=== PATIENT | male | born 1945 | race Caucasian/White ===

== ENCOUNTER 2019-03-29 23:28 | Inpatient (IN) | payer MEDICARE ==
[~2019-03-29] VITALS: Ht 170.1 cm; Wt 907.2 kg
--- NOTE | ~2019-03-29 | PR ---
[place], [place] PROGRESS NOTE NAME: LUZ TRIPP UNIT #: [id number] ROOM: 311 DOCTOR: LORRI WALTER MD BIRTHDATE: [birth year] DOS: 04/01/2019 CHIEF COMPLAINT: "So, when do I go?" SUMMARY OF THE VISIT: The patient was interviewed as he was finishing his breakfast. As I approached, he asked me when he would be leaving and I told him, Thursday morning. He very gruffly acknowledged me and then went back to eating. He continues to be rather short-fused and irritable. Outwardly, he is tolerating the medication regimen well and I see no sedation or somnolence. MENTAL STATUS: He is alert and oriented with some time gaps. Mood is irritable and short-fused. He is terse and very angry, but not to the point of being combative or resistive. Memory has some minor gaps but for the most part, he is intact. PLAN: His valproic acid level is low therapeutic at 62.1. I will go ahead and increase the dose to 500 mg t.i.d. attempting to bring the blood level to the range of about 80. We will check a valproic acid level on 04/03/2019 in the a.m. Monitor and support, returning then to the least restrictive environment when psychiatrically stable. LORRI WALTER MD CM:PNTRANS [id number] LORRI WALTER MD 04/01/19 1525 interface
--- NOTE | ~2019-03-29 | PR ---
[place], [place] PROGRESS NOTE NAME: LUZ TRIPP UNIT #: [id number] ROOM: 311 DOCTOR: YOUSIF ESTEVES CNP BIRTHDATE: [birth year] DOS: 04/02/2019 CHIEF COMPLAINT: "I am still tired." SUMMARY OF THE VISIT: The patient was interviewed as he sat in the dining room, waiting his breakfast. The patient reports that he slept well last night and that his appetite has been good. He denies feeling depressed or anxious to me. He denies feeling agitated or irritable. Staff reports that the patient did sleep last night. He has not exhibited any recent behaviors, compliant with medication. The patient has been pleasant this morning. MENTAL STATUS EXAMINATION: The patient is alert and oriented. He was pleasant and cooperative with me. No overt margarette or hypomania noted. No delusion or paranoia noted. No psychotic symptoms noted. No auditory or visual hallucinations noted. The patient's mood was calm. His affect is congruent with mood. PLAN: The patient had an increase in Depakote on yesterday to 500 mg 3 times a day. The patient does appear to be tolerating it without any side effects. It appears to be effective at this point. The patient is due for a VPA level to be drawn tomorrow morning. We will continue to encourage the patient to engage in individual and tejeda milieu activity. We will continue fall and safety precautions. Plan is to return the patient to the least restrictive environment once he is considered psychiatrically stable. Yousif Esteves CNP CM:PNTRANS [phone] YOUSIF ESTEVES CNP 04/02/19 1118 interface
--- NOTE | ~2019-03-29 | DS ---
[place], [place] DISCHARGE SUMMARY NAME: LUZ TRIPP UNIT #: [id number] ROOM: 311 DOCTOR: YOUSIF ESTEVES CNP BIRTHDATE: [birth year] DOS: 04/04/2019 CHIEF COMPLAINT: "Am I going home today." HISTORY OF PRESENT ILLNESS: This is a 73-year-old white male who resides at [facility] in [place], [place]. The patient had stated openly to staff that he wanted his to bring a gun into the facility so that he could shoot himself. He stated that he wanted her to bring a gun so that he can go scroll hunting. The patient has been increasingly more despondent there and had not been eating or sleeping well. He has not been attending to his ADLs, has been resistive to care. He was now admitted to the Behavioral Health Unit to rule out any organic factors, to stabilize on medications or any other issues and then return to the least restrictive environment once considered psychiatrically stable. SUMMARY OF THE HOSPITAL COURSE: The patient was admitted to the Behavioral Health Unit and his Effexor XR was discontinued and switched to Remeron 15 mg at bedtime, also his trazodone and Seroquel were discontinued in an effort to simplify his overall drug regimen. The patient was started on Depakote, which was titrated to 500 mg 3 times a day over the course of his stay in order to help with mood lability. He has been maintained on Remeron 15 mg. The patient's last VPA level 04/03/2019 was 70.9. The patient reports that he has been sleeping okay. His appetite is good. He feels that his mood is good. He denies feeling irritable or anxious. The patient has improved sufficiently during the course of the stay, he is not reporting any suicidal or homicidal ideations. MENTAL STATUS AT DISCHARGE: The patient is alert and oriented to person, place and time with some gaps. He was pleasant and cooperative with me. No margarette or hypomania noted. No delusions or paranoia noted. No psychotic symptoms noted. No auditory or visual hallucinations noted. The patient's mood was calm. His affect is congruent with mood. No agitation, irritability or anxiety noted. No aggression. FINAL DIAGNOSIS: Major depression, recurrent, severe. PLAN: The patient will be returning home to his home as [facility] will not take him back since he would not participate in therapy. At the time of discharge, there are no acute medical issues and the patient is considered psychiatrically stable. The patient will follow up with psychiatric services in the community. [place], [place] DISCHARGE SUMMARY NAME: LUZ TRIPP UNIT #: [id number] ROOM: 311 DOCTOR: YOUSIF ESTEVES CNP BIRTHDATE: [birth year] Yousif Esteves CNP CM:DISCHARG 8 YOUSIF ESTEVES CNP 04/04/1951 interface
--- NOTE | ~2019-03-29 | PR ---
[place], [place] PROGRESS NOTE NAME: LUZ TRIPP UNIT #: [id number] ROOM: 311 DOCTOR: YOUSIF ESTEVES CNP BIRTHDATE: [birth year] DOS: 04/03/2019 CHIEF COMPLAINT: "I'm feeling happier." SUMMARY OF THE VISIT: The patient was interviewed as he sat in the dining room. The patient did engage in conversation with me. He reports that his mood is improved. He denies feeling anxious, agitated, or irritable. The patient reports that he slept okay last night. His appetite is good. Staff reports that the patient's VPA level was 70.9. No behaviors noted at this time. Compliant with taking medications. MENTAL STATUS EXAMINATION: The patient is alert and oriented. He was pleasant and cooperative with me. No margarette or hypomania noted. No delusions or paranoia noted. No psychotic symptoms noted. No auditory or visual hallucinations noted. The patient's mood was calm. Affect is congruent with mood. No agitation, irritability, or anxiety noted at this time. PLAN: We will continue the patient's medications as prescribed as he appears to be tolerating them without any type of side effects. Medications appear to be effective. Continue to encourage the patient to engage in individual and tejeda milieu activity. Continue fall and safety precautions. Plan is to return the patient to the least restrictive environment once he is considered psychiatrically stable. Yousif Esteves CNP CM:PNTRANS [phone] [id number] YOUSIF ESTEVES CNP 04/03/195 interface
--- NOTE | ~2019-03-29 | WRIGHTHP ---
[place], [place] PATIENT HISTORY AND PHYSICAL EXAM NAME: LUZ TRIPP UNIT #: [id number] ROOM: 311 DOCTOR: LORRI WALTER MD BIRTHDATE: [birth year] DOS: 03/30/2019 INITIAL PSYCHIATRIC EVALUATION CHIEF COMPLAINT: "I don't know why I am here." HISTORY OF PRESENT ILLNESS: This is a 73-year-old white male who resides at [facility] in [place], [place]. The patient stated openly to staff that he wanted his to bring in a gun so that he can shoot himself. Later, he stated that he wanted her to bring a gun so he can go squirrel hunting. The patient has been increasingly more despondent and has not been eating or sleeping well. He has not been attending to his ADLs and has been resistive to care. He is admitted now to rule out organic factors, to stabilize on medication, to rule out any other issues and return to the least restrictive environment when psychiatrically stable. PAST MEDICAL HISTORY: Remarkable for coronary artery disease, congestive heart failure, chronic kidney disease, COPD, CVA, dementia, diverticulosis, TIAs, and diabetes. SOCIAL HISTORY: The patient socially is a nonsmoker. He does not drink alcohol or use illicit drugs. STRENGTHS: Ambulatory, good verbal skills. WEAKNESSES: Cognitive decline, poor coping skills. MENTAL STATUS: He is alert and oriented to person, place, but not time. Mood does seem to be depressed with anxious overtones. He is rather flat, blunted, and constricted. He tries to minimize his suicidal thoughts. There is no hypomania, margarette or psychosis. Short-term memory does have gaps. DIAGNOSIS: Major depression, recurrent, severe. PLAN: I have discontinued his Effexor XR and switched him to Remeron 15 mg at bedtime. I have also discontinued his trazodone and Seroquel in an effort to simplify his overall drug regimen. We will engage him in individual and tejeda milieu activity, returning then to the least restrictive environment when psychiatrically stable. [place], [place] PATIENT HISTORY AND PHYSICAL EXAM NAME: LUZ TRIPP UNIT #: [id number] ROOM: 311 DOCTOR: LORRI WALTER MD BIRTHDATE: [birth year] LORRI WALTER MD CM:ELAINAS:PATIENT HISTORY AND PHYSICAL EXAMINATION [id number] LORRI WALTER MD 03/30/19 1029 interface
--- NOTE | ~2019-03-29 | PR ---
[place], [place] PROGRESS NOTE NAME: LUZ TRIPP UNIT #: [id number] ROOM: 311 DOCTOR: LORRI WALTER MD BIRTHDATE: [birth year] DOS: 03/31/2019 INTERVAL NOTE CHIEF COMPLAINT: "I am okay, I do not really want to be bothered." SUMMARY OF THE VISIT: The patient was interviewed as he was resting in bed. He gave short simple responses, somewhat dismissive. He reports he got up, had breakfast and decided he just wanted to spend the day in bed. Nurses report that he is rather short and terse and irritable and tends to be very mean when family call. MENTAL STATUS: He is alert and oriented with some time gaps. Mood does seem to be labile. Affect inappropriate. There is no true hypomania or margarette. There is no gross psychosis. Short term memory has gaps, otherwise he is intact. PLAN: I will go ahead and check a valproic acid level in the a.m. to ensure that it is therapeutic. Adjust accordingly. Continue to engage in individual and tejeda milieu activity, returning then to the least restrictive environment when stable. LORRI WALTER MD CM:PNTRANS [phone] LORRI WALTER MD 03/31/19 2325 interface
[2019-03-29 23:36] VITALS: BP 126/74
[2019-03-29 23:54] LABS: BASO # 0.1 10*3/uL (0.0-0.1); BASO % 0.8 % (0.0-1.0); EOS # 0.2 10*3/uL (0.0-0.4); EOS % 2.5 % (1.0-4.0); HEMATOCRIT 41.8 % (42.0-52.0); HEMOGLOBIN 14.4 g/dl (14.0-18.0); LYMPH # 3.7 10*3/uL (1.3-4.4); LYMPH % 47.3 % (27.0-41.0); MEAN CELL VOLUME 97.7 fl (80.0-94.0); MEAN CORPUSCULAR HGB 33.6 pg (27.0-31.0); MEAN CORPUSCULAR HGB CONC 34.4 g/dl (33.0-37.0); MEAN PLATELET VOLUME 10.1 fl (9.6-12.3); MONO # 0.6 10*3/uL (0.1-1.0); MONO % 7.7 % (3.0-9.0); NEUT # 3.2 10*3/uL (2.3-7.9); NEUT % 41.4 % (47.0-73.0); PLATELET COUNT AUTOMATED 226 10*3/uL (130-400); RED BLOOD COUNT 4.28 10*6/uL (4.50-5.90); RED CELL DISTRI WIDTH 12.7 % (0-14.5); WHITE BLOOD COUNT 7.7 10*3/uL (4.8-10.8)
[2019-03-30 00:08] LABS: ALBUMIN 3.6 gm/dl (3.1-4.5); ALKALINE PHOSPHATASE 70 U/L (45-117); BUN 11 mg/dl (7-24); CHLORIDE 105 mmol/L (98-107); CREATININE 1.48 mg/dL (0.70-1.30); POTASSIUM 3.3 mmol/L (3.5-5.1); SGOT/AST 18 IU/L (3-35); SGPT/ALT 18 U/L (12-78); SODIUM 139 mmol/L (136-145); TOTAL PROTEIN 7.7 gm/dL (6.4-8.2)
[2019-03-30 00:11] LABS: ACETAMINOPHEN (TYLENOL) < 5.0 ug/ml (10-30); ETHYL ALCOHOL < 3.0 mg/dl (<3)
[2019-03-30 00:13] LABS: BILIRUBIN NEGATIVE (NEGATIVE); BLOOD NEGATIVE (NEGATIVE); CLARITY CLEAR (CLEAR); COLOR YELLOW (YELLOW); GLUCOSE 3+ (NEGATIVE); KETONE NEGATIVE (NEGATIVE); LEUKO ESTERASE NEGATIVE (NEGATIVE); NITRITE NEGATIVE (NEGATIVE); SPECIFIC GRAVITY <= 1.005 (1.005-1.030); UROBILINOGEN 0.2 E.U./dl (0.2-1.0)
[2019-03-30 00:20] LABS: WBC 0-2 wbc/hpf (0-5); YEAST TRACE
[2019-03-30 00:22] LABS: URINE AMPHETAMINES < 1000 (1000ng/ml); URINE BARBITURATES < 200 (200ng/ml); URINE BENZODIAZEPINES < 200 (200ng/ml); URINE CANNABINOIDS (THC) < 50 (50ng/ml); URINE COCAINE < 300 (300ng/ml); URINE METHADONE < 300 (300ng/ml); URINE OPIATES < 300 (300ng/ml)
[2019-03-30 00:24] LABS: URINE PHENCYCLIDINE < 25 (25ng/ml)
[2019-03-30] MEDS ORDERED: ASPIRIN CHEWABL81 MG PO (01:23)
[2019-03-30] MEDS ORDERED: LIPITOR80 MG PO (01:26)
[2019-03-30] MEDS ORDERED: CARVEDILOL3.125 MG PO (01:27)
[2019-03-30] MEDS ORDERED: VITAMIN B-121000 MC2 PO (01:27)
[2019-03-30] MEDS ORDERED: FENOFIBRATE160 MG PO (01:28)
[2019-03-30] MEDS ORDERED: NATURE'S BLEND F1 MG PO (01:29)
[2019-03-30] MEDS ORDERED: JARDIANCE25 MG PO (01:30)
[2019-03-30] MEDS ORDERED: LANTUS SOL100 UNIT/1 SQ (01:32)
[2019-03-30] MEDS ORDERED: NICODERM CQ1 EAC2 TD (01:33)
[2019-03-30] MEDS ORDERED: PANTOPRAZOLE SO40 MG PO (01:36)
[2019-03-30] MEDS ORDERED: SEROQUEL50 MG PO (01:39)
[2019-03-30] MEDS ORDERED: K-TAB20 MEQ PO (01:39)
[2019-03-30] MEDS ORDERED: TRAZODONE50 MG PO (01:40)
--- NOTE | 2019-03-30 01:40 | NUR ---
A 73, [facility] under the services of LORRI Ornelas MD with a diagnosis of INTERMITTENT EXPLOSIVE DISORDER. Chief complaint is AGITATION, SUICIDAL IDEATIONS. Patient arrived via wheel chair from [facility]. Initial assessment completed. Vital signs taken and recorded. LORRI ORNELAS MD notified of admission to the unit. Orders received. See assessment for past medical history, medications and allergies. Patient oriented to unit. [facility]. visitation policy reviewed. Clothing/patient valuable form completed. TIERNEY CAT
[2019-03-30] MEDS ORDERED: EFFEXOR XR150 M1 PO (01:44)
[2019-03-30] MEDS ORDERED: GLYBURIDE5 MG PO (01:44)
[2019-03-30 01:50] VITALS: BP 150/93
[2019-03-30] MEDS ORDERED: NOVOLOG FL100 UNIT/2 SC (01:53)
[2019-03-30] MEDS ORDERED: LACTULOSE10 GM/154 PO (01:55)
[2019-03-30 02:10] VITALS: BP 150/93
--- NOTE | 2019-03-30 03:19 | NUR ---
DR OSBORN HERE TO SEE CLIENT
--- NOTE | 2019-03-30 04:10 | NUR ---
PATIENT ARGUMENTATIVE AND SARCASTIC DURING ADMISSION PROCESS, PROVIDED THIS NURSE WITH DISMISSIVE ANSWERS DURING QUESTIONING AND REFUSED TO COMPLETE ADMISSION FORMS STATING "IM NOT SIGNING ANYTHING". PT ALSO REFUSED TO COMPLETE SKIN ASSESSMENT AT THIS TIME BUT STATES HE HAS NO WOUNDS AND IS FINE. PT DENIES SI/HI STATING "I ONLY WANTED MY GUNS TO SHOOT SQUIRRELS, BETTER LOCK ME UP FOREVER", PT CONTRACTED FOR SAFETY. PT ALSO OBSERVED TO BE SUSPICIOUS OF STAFF STATING "DO YOU JUST MAKE THINGS UP ABOUT ME, IS THAT WHAT YOURE DOING" AND "WHAT ARE YOU GOING TO DO BEARDEN MY BRAIN". PT REDIRECTED AND PROVIDED WITH 1:1 AND SUPPORT WITH MINIMAL EFFECT. PT ALERT AND ORIENTED TO PERSON AND PLACE, CONFUSED WITH ST/LT MEMORY DEFICITS. PT AMBULATORY WITH A STEADY GAIT, RESPIRATIONS EASY AND REGULAR ON ROOM AIR, CONTINENT OF BOWEL AND BLADDER. PT ASSISTED TO BED WITHOUT DIFFICULTY, NO COMBATIVE BEHAVIOR NOTED. NO PHYSICAL COMPLAINTS VOICED. PT CURRENTLY LAYING DOWN WITH EYES CLOSED, NO SIGNS OR SYMPTOMS OF DISTRESS NOTED. PLAN IS TO CONTINUE TO MONITOR MOOD AND BEHAVIORS. PRESENT REALITY AND REDIRECT NEEDED. PROVIDE 1:1 FOR VENTILATION OF FEELINGS WITH EMOTIONAL SUPPORT. ENCOURAGE MEDICATION COMPLIANCE AND EDUCATE. MAINTAIN Q 15 MIN CHECKS.
[2019-03-30 07:13] LABS: THYROID STIM HORMONE (HS) 0.538 uIU/ml (0.358-4.75)
--- NOTE | 2019-03-30 08:30 | NUR ---
Treatment Plan meeting with Dr. Guillermo, RN, AT, SW and Merchandiser. Plan for discharge next week. Pt. came [facility]. Will reach out to facility today to discuss discharge Planning.
[2019-03-30 08:48] VITALS: BP 112/64
--- NOTE | 2019-03-30 09:10 | NUR ---
PHYSICAL THERAPY Nursing screen received and chart reviewed. Physical therapy referral received. Thank you. Nereida Quach,PT,DPT.
--- NOTE | 2019-03-30 10:46 | NUR ---
DR. ZAVALA ON UNIT TO ASSESS PT, UPDATE PROVIDED.
--- NOTE | 2019-03-30 10:47 | NUR ---
Spoke with Ernst in Admissions at [facility]. Pt. has only been at facility x 4 days and was disruptive and refused to participate in therapy. Pt. was SNF for rehab due to a fall at home. Insurance was planning discharge due to non-compliance.
--- NOTE | 2019-03-30 13:19 | NUR ---
DR. ZAVALA CALLED RE: PT LACTULOSE DOSE. FAMILY IN FOR VISIT, SPOKE WITH FAMILY RE: LACTULOSE PER FAMILY, THE PATIENT WAS GETTING IT 2X A DAY AT HOME FOR ELEVATED AMMONIA LEVEL. PER DR. COLEY GO AHEAD AND CHANGE IT 2X DAY AND CONTINUE TO MONITOR PT BOWEL MOVEMENTS.
--- NOTE | 2019-03-30 15:33 | NUR ---
PM GROUP/TEAR BOTTLES PT CHOSE NOT TO ATTEND AFTERNOON GROUP THERAPY. PT WENT TO HIS ROOM TO NAP
[2019-03-30 19:55] VITALS: BP 127/73
--- NOTE | 2019-03-30 20:59 | NUR ---
24 HR chart check completed.
--- NOTE | 2019-03-30 21:40 | NUR ---
Patient alert to person and time. Patient irritable and depressed. Patient compliant with medications without any difficulty. Patient refused 1:1 for emotional support. Plan to continue to encourage medication compliance. Q 15 minute safety checks continued and maintained. See [facility] flowsheet for further documentation.
--- NOTE | 2019-03-31 05:41 | NUR ---
Patient slept approx.8 hours throughout shift. Q 15 minute safety cheks continued and maintained.
[2019-03-31 08:00] VITALS: BP 128/82
--- NOTE | 2019-03-31 10:15 | NUR ---
DR. ZAVALA ON FLOOR TO ASSESS PT.
--- NOTE | 2019-03-31 10:20 | NUR ---
PHYSICAL THERAPY Physical therapy screen complete. Nursing reports patient is ambulatory. No PT needs at this time. Discharge PT orders. Thank you. Nereida Quach,PT,DPT
--- NOTE | 2019-03-31 10:30 | NUR ---
Dr. Guillermo met with Nursing Staff this a.m. for treatment Plan meeting. Plan for discharge next week. Pt. possible discharge to home.
--- NOTE | 2019-03-31 11:55 | NUR ---
AM GROUP/EXERCISE PT DID NOT ATTEND MORNING GROUP THERAPY. PT WAS IN BED NAPPING
--- NOTE | 2019-03-31 12:32 | NUR ---
Mr Fink is ambulating around behavioral health independently. He reports completing ADL's independently and is able to feed self without assistance. Mr Fink c/o some knee pain while ambulating but it is not limiting his ability to complete ADL's and functional transfers. Patient is declining any further acute OT at this time. Twyla Brownlee OTR/L
--- NOTE | 2019-03-31 12:42 | NUR ---
Shift chart check completed.
--- NOTE | 2019-03-31 15:32 | NUR ---
PM GROUP/PAINTING AND CARDS PT DID NOT ATTEND AFTERNOON GROUP THERAPY. PT STAYED IN BED NAPPING
--- NOTE | 2019-03-31 15:37 | NUR ---
P- MOOD LABILE WITH IRRITABLE OVERTONES. ISOLATIVE TO ROOM. REFUSE TO ATTEND/PARTICIPATE IN GROUP THERAPIES. I- ASSESS MOOD, ORIENTATION, SI/HI, HALLUCINATIONS, DELUSIONS OR PAIN. 1:1 INTERACTION WITH EMOTIONAL SUPPORT AND VENTILATION OF FEELINGS PROVIDED. ENCOURAGE TO ATTEND/PARTICIPATE IN GROUP THERAPIES FOR EMOTIONAL SUPPORT AND SOCIALIZATION. ENCOURAGE INTERACTION WITH PEERS AND STAFF IN THE DINING ROOM. PROVIDE WITH MEDICATIONS ON TIME WITH EDUCATION ON EACH. R- PT ALERT AND ORIENTED X3. MOOD LABILE WITH IRRITABLE OVERTONES. DENIES SI/HI, HALLUCINATIONS, OR PAIN. NO S/S OF INTERACTING WITH INTERNAL STIMULI.NO DELUSIONAL THOUGHT PROCESS NOTED. NO S/S OF DISTRESS NOTED. RESPS EVEN AND UNLABORED ON ROOM AIR. CONTINES TO REFUSE TO ATTEND/PARTICIPATE IN GROUP THERAPIES. COMES DOWN FOR MEALS. EATING AND DRINKING ADEQUATELY. PT STATED "I JUST AM TIRED. LEAVE ME ALONE AND LET ME SLEEP". CONTINUES TO REFUSE. GAIT STEADY WHILE AMBULATING. MAKES NEEDS KNOWN. REFUSE 1:1 INTERACTION. P- ASSESS MOOD, ORIENTAION, SI/HI, HALLUCINATIONS, DLEUSIONS, OR PAIN EVERY SHIFT. 1:1 INTERACTION WITH EMOTIONAL SUPPORT AND VENTILATION OF FEELINGS PROVIDED WHEN NECESSARY. ENCOURAGE TO ATTEND/PARTICIPATE IN GROUP THERAPIES. ENCOURAGE INTERACTION WITH PEERS AND STAFF. Q15 MINUTE CHECKS MAINTAINED FOR SAFETY.
--- NOTE | 2019-03-31 15:55 | NUR ---
Family meeting held with pt, pt's Kerline, and pt's daughter Ninoska. Discussed discharge options. Explained to pt's family that pt was not participating in Pt/OT at the SNF and that pt is unable to return there if he continues to not participate. Pt stated that he wanted to go home. Pt was fixated on the his admission to [facility]. Pt denies SI and was upset because he feels that he is being punished because he "opened his mouth." Attempted to educate pt about the seriousness of voicing a suicidal statement. Pt continued to express that he was treated unfairly. Redirected conversation to discharge plan numerous times. Pt is to return home upon discharge with SAVNA. Omid Khan LPN automatic data processing planner was also present for the meeting.
[2019-03-31 20:00] VITALS: BP 136/79
--- NOTE | 2019-03-31 22:16 | NUR ---
Patient alert to person and time. Patient irritable and depressed. Patient compliant with medications without any difficulty. Patient refused 1:1 for emotional support. Plan to continue to encourage medication compliance. Q 15 minute safety checks continued and maintained. See [facility] flowsheet for further documentation.
--- NOTE | 2019-04-01 00:13 | NUR ---
24 HR chart check completed.
--- NOTE | 2019-04-01 06:14 | NUR ---
Patient slept approx. 7 1/2 hours throughout shift. Q 15 minute safety cheks continued and maintained.
--- NOTE | 2019-04-01 07:45 | NUR ---
Returned call from Olga at [facility] regarding pre-authorization for inpatient mental health admission. Awaiting return call.
--- NOTE | 2019-04-01 07:45 | NUR ---
PT SITTING IN DINING ROOM WITH PEERS, EATING BREAKFAST. NO S/S OF DISTRESS NOTED. RESPS EVEN AND UNLABORED ON ROOM AIR.
[2019-04-01 08:00] VITALS: BP 100/53
--- NOTE | 2019-04-01 08:30 | NUR ---
Treatment Plan meeting with Dr. Guillermo, RN, AT, SW and Soap Maker. Plan for discharge Thursday. Pt. [facility]. Pt. was refusing all therapies and was to be discharged due to no SNF need. Will follow with Facility today to discuss.
--- NOTE | 2019-04-01 10:36 | NUR ---
Spoke with Martín at [facility]. Pt. is unable to return due to No longer appropriate for SNF. Pt. will discharge Home.
--- NOTE | 2019-04-01 11:38 | NUR ---
AM GROUP/LEISURE INTERESTS PT CAME INTO GROUP LATE AND SAT AT THE BACK OF THE ROOM. A WEB SITE PROJECT MANAGER ENGAGED IN CONVERSATION WITH PT. PT EXPRESSED PARANOID IDEATIONS IN STATING, "MY SENT ME HERE, I DON'T UNDERSTAND WHY IN THEY THINK I WOULD KILL MYSELF WHEN I'VE HAD 74 YEARS TO DO IT" PT CHOSE NOT TO PARTICIPATE IN ANY ACTIVITY
--- NOTE | 2019-04-01 13:17 | NUR ---
Attempted to call Olga at [facility] regarding pre-authorization for inpatient mental health admission at [phone]. Pending ref # [id number]. Awaiting return call.
--- NOTE | 2019-04-01 13:31 | NUR ---
Shift chart check completed.
--- NOTE | 2019-04-01 14:13 | NUR ---
Spoke to Sofi at [facility] regarding inpatient mental health admission. Discussed clinical. As patient has a past medical diagnosis of dementia the case has to be forwarded to the medical case worker for review. She states she should get a response in a couple of hours and will return call.
--- NOTE | 2019-04-01 14:54 | NUR ---
Spoke to Sofi at [facility]. IP 7 days cam, NRD 04/05. Auth # [id number].
--- NOTE | 2019-04-01 15:09 | NUR ---
P- ALERT TO PERSON, APPROXIMATE PLACE, AND TIME. ST/LT MEMORY DEFICITS NOTED. MOOD IRRITABLE. I- REORIENT WHEN CONFUSION IS NOTED. ASSESS MOOD, ORIENTATION, SI/HI, HALLUCINATIONS, DELUSIONS, OR PAIN. 1:1 INTERACTION WITH EMOTIONAL SUPPORT PROVIDED. PROVIDE WITH MEDICATIONS ON TIME WITH EDUCATION ON EACH. ENCOURAGE TO ATTEND/PARTICIPATE IN GROUP THERAPIES. R- REORIENTATION EFFECTIVE. MOOD REMAINS IRRITABLE AT TIMES. DENIES SI/HI, HALLUCINATIONS OR PAIN. NO S/S OF INTERACTING WITH INTERNAL STIMULI. NO S/S OF DELUSIONAL THOUGHT PROCESS NOTED. RESPS EVEN AND UNLABORED ON ROOM AIR. MEDICATION COMPLIANT. GAIT STEADY WHILE AMBULATING. INTERACTIVE WITH PEERS AND STAFF. PT ATTENDING GROUP THERAPY. MEDICATION COMPLIANT. EATING AND DRINKING ADEQUATELY. P- REORIENT FREQUENTLY WHEN CONFUSION IS NOTED. ASSESS OOD, ORIENTATION, SI/HI, OR PAIN EVERY SHIFT. 1:1 INTERACTION WHEN NECESSARY. PROVIDE MEDICATIONS ON TIME WITH EDUCATION ON EACH. ENCOURAGE TO ATTEND/PARTICIPATE IN GROUP THERAPIES. Q15 MINUTE CHECKS MAINTAINED FOR SAFETY.
[2019-04-01 19:24] VITALS: BP 102/62
--- NOTE | 2019-04-01 20:20 | NUR ---
Daughter called in and wanted an update on her father. Daughter was upset because she hadn't heard anything for awhile. Updated daughter about patient's plan of care. Daughter expressed satisfaction at this time but requested for doctor to call her tomorrow.
--- NOTE | 2019-04-01 22:42 | NUR ---
Patient alert to person and time. Patient irritable and depressed. Patient compliant with medications without any difficulty. Patient refused 1:1 for emotional support. Plan to continue to encourage medication compliance. Q 15 minute safety checks continued and maintained. See [facility] flowsheet for further documentation.
--- NOTE | 2019-04-02 00:28 | NUR ---
24 HR chart check completed.
--- NOTE | 2019-04-02 06:36 | NUR ---
Patient slept approx. 7 1/2 hours throughout shift. Q 15 minute safety cheks continued and maintained.
[2019-04-02 08:25] VITALS: BP 99/60
--- NOTE | 2019-04-02 09:49 | NUR ---
DR. KRUGER ON UNIT TO ASSESS PT, UPDATE PROVIDED.
--- NOTE | 2019-04-02 11:44 | NUR ---
AM/EXERCISE/REMINISCE/ART PT ENCOURAGED TO ATTEND AND PARTICIPATE IN GROUP BUT PT CHOSE TO REMIAN IN ROOM SLEEPING. PT SHOWED UP AT THE END OF GROUP DUE TO LUNCH COMING. PT WILL CONTINUE TO BE ENCOURAGED TO ATTEND AN DPARTICIPATE IN FUTURE RGOUP SESSIONS.
--- NOTE | 2019-04-02 15:52 | NUR ---
PM/GAMES/MUSIC PT CHOSE NOT TO ATTEND OR PARTICIPATE IN GROUP. PT SHOWED UP THE LAST TEN MINUTES OF GROUP ASKING FOR COFFEE. PT DID NOTEXPRESS ANY S.I., PARANOIA, OR AGGRESSION WHILE PRESENT. PT WILL CONTINUE TO BE ENCOURAGED OT ATTEND AN DPARTICIPATE IN FUTURE GROUP SESSIONS.
[2019-04-02 19:42] VITALS: BP 101/61
--- NOTE | 2019-04-03 00:25 | NUR ---
24 HR chart check completed.
--- NOTE | 2019-04-03 01:37 | NUR ---
P-DEPRESSED, MILDLY IRRITABLE I-VERBAL INTERVENTION FOR EMOTIONAL SUPPORT, ADMINISTER MEDICATIONS, MONITOR SLEEP R-DEPRESSED MOOD WITH IRRITABLE OVERTONES. LIMITED WITH CONVERSATION. ALERT & ORIENTED TO PERSON & PLACE. SAT IN THE DINING ROOM WITH PEERS BUT KEPT TO HIMSELF. ATE SNACK. HS BEDSIDE GLUCOSE 271. COMPLIANT WITH MEDS. HAD 2 BOWEL MOVEMENTS THIS EVENING. P-CONTINUE TO MONITOR. PROVIDE PHYSICAL ASSISTANCE & EMOTIONAL SUPPORT NEEDED.
--- NOTE | 2019-04-03 05:23 | NUR ---
SLEPT PAST 2300 WITH 1 BRIEF AWAKENING TO GO TO THE BATHROOM
--- NOTE | 2019-04-03 06:24 | NUR ---
AM BEDSIDE GLUCOSE 164
[2019-04-03 08:05] VITALS: BP 132/68
--- NOTE | 2019-04-03 09:54 | NUR ---
DR. KRUGER ON UNIT TO ASSESS PT, UPDATE PROVIDED.
--- NOTE | 2019-04-03 12:06 | NUR ---
AM/ BRAIN GAMES/MUSIC PT CHOSE NOT TO ATTEND OR PARTICIPATE BUT TO REMIAN IN ROOM SLEEPING. PT WILL CONTINUE TO BE ENCOURAGED OT ATTEND AN DPARTICIPATE IN FUTURE GROUP SESSIONS.
--- NOTE | 2019-04-03 13:59 | NUR ---
PT DAUGHTER CALLED IN REQUESTING UPDATE ON PT. INFORMATION PROVIDED WITH PT PERMISSION. DAUGHTER REQUESTING COMPETANCY EVAL ON PT, ADVSIED THAT WE WILL MAKE DR. WALTER AWARE OF HER REQUEST. DTR ALSO VOICED CONCERNS OF PLAN TO DISCHARGE PT HOME, STATES SHE DOES NOT FEEL HE IS SAFE TO RETURN HOME AND FEELS THAT HER MOTHER IS UNABLE TO CARE FOR HIM. ADVSIED THAT WE WILL MAKE DR AWARE OF HER CONCERNS.
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
[2019-04-03 19:27] VITALS: BP 127/69
--- NOTE | 2019-04-03 21:52 | NUR ---
24 HR chart check completed.
--- NOTE | 2019-04-03 23:45 | NUR ---
P-DEPRESSED, MILDLY IRRITABLE I-VERBAL INTERVENTION FOR EMOTIONAL SUPPORT, ADMINISTER MEDICATIONS, MONITOR SLEEP R-DEPRESSED MOOD WITH IRRITABLE OVERTONES. LIMITED WITH CONVERSATION. ALERT & ORIENTED TO PERSON, PLACE, YEAR, DATE OF , PRESIDENT. SAT IN THE DINING ROOM WITH PEERS BUT KEPT TO HIMSELF. DOES HAVE A BODY ODOR BUT REFUSED TO SHOWER THIS EVENING. ATE SNACK. HS BEDSIDE GLUCOSE 257. COMPLIANT WITH MEDS. AMBULATES INDEPENDENTLY HOLDING ON TO SIDE RAIL AT TIMES. P-CONTINUE TO MONITOR. PROVIDE PHYSICAL ASSISTANCE & EMOTIONAL SUPPORT NEEDED.
--- NOTE | 2019-04-04 00:23 | NUR ---
RECEIVED A PHONE CALL FROM ED REGISTRATION. PTS , RICKY BROUGHT IN A COPY OF PTS LIVING WILL & DURABLE POA PAPERS. SUNIL GARCIA, BUS DRIVER SUPERVISOR, [facility] & BROUGHT THE PAPERS UP. PLACED ON PTS CHART.
--- NOTE | 2019-04-04 06:02 | NUR ---
PT HAS SLEPT PAST 2129 WITH A BRIEF AWAKENING TO GO TO THE BATHROOM INDEPENDENTLY.
--- NOTE | 2019-04-04 06:34 | NUR ---
AM BEDSIDE GLUCOSE THIS AM 141
[2019-04-04 07:59] VITALS: BP 130/66
[2019-04-04] MEDS ORDERED: VITAMIN D5000 UNI1 PO (08:46)
[2019-04-04] MEDS ORDERED: DIVALPROEX SOD500 MG PO (09:21)
[2019-04-04] MEDS ORDERED: MIRTAZAPINE15 M2 PO (09:21)
--- NOTE | 2019-04-04 11:33 | NUR ---
AM GROUP PT DID NOT ATTEND MORNING GROUP THERAPY. PT IS READYING TO BE DISCHARGED FROM THE UNIT TODAY.
--- NOTE | 2019-04-04 12:00 | NUR ---
P- MOOD STABLE, IRRITABLE OVERTONES AT TIMES. WALKING WITH A SLOUCHED GAIT, PT STATING THAT IT IS DIFFICULT FOR HIM TO WALK. I- ASSESS MOOD, ORIENTATION, SI/HI, HALLUCINATIONS, DELUSIONS OR PAIN. ASSESS GAIT. ASSIST PATIENT WITH AMBULATING AND CARE WHEN UNSTEADY. 1:1 INTERACTION WITH EMOTIONAL SUPPORT PROVIDED. PROVIDE PRESCRIBED MEDICATIONS ON TIME WITH EDUCATION ON EACH. R- ALERT AND ORIENTED X3. DENIES SI/HI, HALLUCINATIONS OR PAIN. NO S/S OF INTERACTING WITH INTERNAL STIMULI. NO S/S OF DELUSIONAL THOUGHT PROCESS NOTED. NO S/S OF DISTRESS NOTED. RESPS EVEN AND UNLABORED ON ROOM AIR. PATIENT STATED "I FEEL FINE NOW, JUST UPSET SOMETIMES". 1:1 EFFECTIVE. PATIENT STATING THAT HE DOES NOT KNOW WHY HE IS HAVING DIFFICULTY WALKING. NOTED PT TO BE WALKING WITH NO DIFFICULTIES UNTIL PT LOOKED UP AND SEEN STAFF, PT BEGAN WALKING WITH A SLOUCHED GAIT. PT TOOK A SHOWER WITH ASSISTANCE BY MENTAL HEALTH WORKER. EATING AND DRINKING ADEQUATELY. MEDICATION COMPLIANT. PT STATED "I AM GOING HOME, ABOUT TIME". INTERACTING WITH PEERS AND STAFF. P- ASSESS MOOD, ORIENTATION, SI/HI, HALLUCINATIONS, DELUSIONS OR PAIN EVERY SHIFT. PROVIDE MEDICATIONS ON TIME WITH EDUCAITON ON EACH. 1:1 INTERACTION PROVIDED WHEN NECESSARY. ASSIST WITH AMBULATING WHEN GAIT UNSTEADY. Q15 MINUTE CHECKS MAINTAINED FOR SAFETY.
--- NOTE | 2019-04-04 12:43 | NUR ---
Shift chart check completed.
--- NOTE | 2019-04-04 13:00 | NUR ---
FAMILY PRESENT, PATIENT READY FOR DISCHARGE. ALL DISCHARGE INSTRUCTIONS REVIEWED WITH PATIENT AND SIGNED. ALL BELONGING GATHERED. PATIENT ASSISTED INTO WHEELCHAIR WITH DISCHARGE INSTRUCTIONS AND BELONGING. PATIENT ASSISTED OFF UNIT [facility] STAFF, SECURITY AND FAMILY TO PRIVATE VEHICLE.
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
--- NOTE | 2019-04-04 15:26 | NUR ---
Detailed discharge clinical left on [facility]'s discharge line, .
--- NOTE | 2019-04-05 11:34 | NUR ---
Received call from Pat at [facility] requesting H&P and discharge summary. Faxed H&P, discharge summary, and discharge packet to Pat at [phone].
== END 2019-04-04 13:00 | disposition home or self-care (01) | DRG 885 ==
LOC: ED 23:28 → 3N 03-30 01:10
PROVIDERS: Nurse Practitioner Family; ADMIT Psychiatry & Neurology Psychiatry
DX: F33.2 Major depressive disorder, recurrent severe without psychotic features (principal); R45.851 Suicidal ideations; F23 Brief psychotic disorder; F03.90 Unspecified dementia, unspecified severity, without behavioral disturbance, psychotic disturbance, mood disturbance, and anxiety; J44.9 Chronic obstructive pulmonary disease, unspecified; E11.9 Type 2 diabetes mellitus without complications; I50.9 Heart failure, unspecified; I25.10 Atherosclerotic heart disease of native coronary artery without angina pectoris; K57.90 Diverticulosis of intestine, part unspecified, without perforation or abscess without bleeding; N18.3 Chronic kidney disease, stage 3 (moderate); R00.1 Bradycardia, unspecified; E78.1 Pure hyperglyceridemia; E55.9 Vitamin D deficiency, unspecified; E87.6 Hypokalemia; Z86.73 Personal history of transient ischemic attack (TIA), and cerebral infarction without residual deficits; Z88.8 Allergy status to other drugs, medicaments and biological substances; Z88.2 Allergy status to sulfonamides; Z91.09 Other allergy status, other than to drugs and biological substances; Z79.82 Long term (current) use of aspirin; Z79.899 Other long term (current) drug therapy; Z79.4 Long term (current) use of insulin

== ENCOUNTER 2019-08-14 14:46 | Inpatient (IN) | payer MEDICARE ==
[~2019-08-14] VITALS: Ht 170.2 cm; Wt 83.9 kg
[~2019-08-14 14:46] MED LIST: ASPIRIN CHEWABL81 MG PO; CARVEDILOL3.125 MG PO; DIVALPROEX SOD500 MG PO; EFFEXOR XR150 M1 PO; FENOFIBRATE160 MG PO; GLYBURIDE5 MG PO; JARDIANCE25 MG PO; K-TAB20 MEQ PO; LACTULOSE10 GM/154 PO; LANTUS SOL100 UNIT/1 SQ; LIPITOR80 MG PO; MIRTAZAPINE15 M2 PO; NATURE'S BLEND F1 MG PO; NICODERM CQ1 EAC2 TD; NOVOLOG FL100 UNIT/2 SC; PANTOPRAZOLE SO40 MG PO; SEROQUEL50 MG PO; TRAZODONE50 MG PO; VITAMIN B-121000 MC2 PO; VITAMIN D5000 UNI1 PO
[2019-08-14 14:55] VITALS: BP 90/53
[2019-08-14 16:45] LABS: BILIRUBIN NEGATIVE (NEGATIVE); BLOOD 2+ (NEGATIVE); CLARITY CLEAR (CLEAR); COLOR YELLOW (YELLOW); GLUCOSE NEGATIVE (NEGATIVE); KETONE TRACE (NEGATIVE); LEUKO ESTERASE TRACE (NEGATIVE); NITRITE NEGATIVE (NEGATIVE); UROBILINOGEN 0.2 E.U./dl (0.2-1.0)
[2019-08-14 16:47] LABS: BACTERIA TRACE; URINE AMPHETAMINES < 1000 (1000ng/ml); URINE BARBITURATES < 200 (200ng/ml); URINE BENZODIAZEPINES < 200 (200ng/ml); URINE CANNABINOIDS (THC) < 50 (50ng/ml); URINE COCAINE < 300 (300ng/ml); URINE METHADONE < 300 (300ng/ml); URINE OPIATES < 300 (300ng/ml)
[2019-08-14 16:51] LABS: URINE PHENCYCLIDINE < 25 (25ng/ml)
[2019-08-14 19:19] LABS: BASO # 0.1 10*3/uL (0.0-0.1); BASO % 1.2 % (0.0-1.0); EOS # 0.3 10*3/uL (0.0-0.4); EOS % 3.4 % (1.0-4.0); HEMATOCRIT 40.1 % (42.0-52.0); HEMOGLOBIN 13.1 g/dl (14.0-18.0); LYMPH # 4.4 10*3/uL (1.3-4.4); LYMPH % 46.6 % (27.0-41.0); MEAN CORPUSCULAR HGB 32.3 pg (27.0-31.0); MEAN CORPUSCULAR HGB CONC 32.7 g/dl (33.0-37.0); MONO # 0.7 10*3/uL (0.1-1.0); MONO % 7.7 % (3.0-9.0); NEUT # 3.9 10*3/uL (2.3-7.9); NEUT % 40.9 % (47.0-73.0); PLATELET COUNT AUTOMATED 272 10*3/uL (130-400); RED BLOOD COUNT 4.05 10*6/uL (4.50-5.90); RED CELL DISTRI WIDTH 12.9 % (0-14.5); WHITE BLOOD COUNT 9.4 10*3/uL (4.8-10.8)
[2019-08-14 19:28] LABS: ALBUMIN 3.2 gm/dl (3.1-4.5); ALKALINE PHOSPHATASE 60 U/L (45-117); BUN 23 mg/dl (7-24); CHLORIDE 108 mmol/L (98-107); POTASSIUM 3.7 mmol/L (3.5-5.1); SGOT/AST 34 IU/L (3-35); SGPT/ALT 24 U/L (12-78); SODIUM 141 mmol/L (136-145); TOTAL PROTEIN 7.8 gm/dL (6.4-8.2)
[2019-08-14 19:30] VITALS: BP 112/68
[2019-08-14 19:31] LABS: ACETAMINOPHEN (TYLENOL) < 5.0 ug/ml (10-30); ETHYL ALCOHOL < 3.0 mg/dl (<3)
[2019-08-14] MEDS ORDERED: MIRTAZAPINE30 M1 PO (22:29)
[2019-08-14] MEDS ORDERED: NOVOLOG10 ML SC (22:31)
[2019-08-14] MEDS ORDERED: XIFAXAN550 MG PO (22:33)
[2019-08-14] MEDS ORDERED: MAGNESIUM CHLOR70 MG PO (22:33)
[2019-08-14] MEDS ORDERED: Ipratropium Brom3 ML INH (22:34)
[2019-08-14] MEDS ORDERED: SEROQUEL50 MG PO (22:36)
[2019-08-14] MEDS ORDERED: VISTARIL25 M2 PO (22:37)
[2019-08-14] MEDS ORDERED: ZYPREXA2.5 MG PO (22:37)
[2019-08-14 22:45] VITALS: BP 112/68
[2019-08-15 07:49] VITALS: BP 103/69
[2019-08-15 10:13] LABS: BASO # 0.1 10*3/uL (0.0-0.1); BASO % 0.7 % (0.0-1.0); EOS # 0.3 10*3/uL (0.0-0.4); EOS % 3.1 % (1.0-4.0); HEMATOCRIT 41.8 % (42.0-52.0); HEMOGLOBIN 13.7 g/dl (14.0-18.0); LYMPH # 2.4 10*3/uL (1.3-4.4); LYMPH % 29.1 % (27.0-41.0); MEAN CELL VOLUME 98.8 fl (80.0-94.0); MEAN CORPUSCULAR HGB 32.4 pg (27.0-31.0); MEAN CORPUSCULAR HGB CONC 32.8 g/dl (33.0-37.0); MEAN PLATELET VOLUME 10.8 fl (9.6-12.3); MONO # 0.8 10*3/uL (0.1-1.0); MONO % 9.4 % (3.0-9.0); NEUT # 4.7 10*3/uL (2.3-7.9); NEUT % 57.5 % (47.0-73.0); PLATELET COUNT AUTOMATED 264 10*3/uL (130-400); RED BLOOD COUNT 4.23 10*6/uL (4.50-5.90); RED CELL DISTRI WIDTH 13.2 % (0-14.5); WHITE BLOOD COUNT 8.1 10*3/uL (4.8-10.8)
[2019-08-15 10:28] LABS: ALBUMIN 3.3 gm/dl (3.1-4.5); CREATININE 2.15 mg/dL (0.70-1.30); POTASSIUM 4.4 mmol/L (3.5-5.1); TOTAL PROTEIN 8.2 gm/dL (6.4-8.2); VALPROIC ACID (DEPAKENE) 17.6 ug/ml (50-100)
[2019-08-15 10:34] LABS: THYROID STIM HORMONE (HS) 1.21 uIU/ml (0.358-4.75)
[2019-08-15 15:23] LABS: VITAMIN D, 25-HYDROXY 10.9 ng/mL (30-100)
[2019-08-16 07:44] VITALS: BP 113/65
[2019-08-16 19:44] VITALS: BP 102/60
[2019-08-17 08:25] VITALS: BP 100/68
[2019-08-17 20:00] VITALS: BP 112/70
[2019-08-18 08:00] VITALS: BP 110/55
[2019-08-18 08:14] VITALS: BP 110/55
[2019-08-18 20:00] VITALS: BP 112/65
[2019-08-19 08:09] VITALS: BP 109/65
[2019-08-19 20:00] VITALS: BP 126/76
[2019-08-20 07:49] VITALS: BP 117/69
[2019-08-20 20:00] VITALS: BP 123/71
[2019-08-21 08:00] VITALS: BP 124/65
[2019-08-21 19:48] VITALS: BP 115/52
[2019-08-22 07:43] VITALS: BP 122/77
[2019-08-22 19:48] VITALS: BP 110/56
[2019-08-23 08:00] VITALS: BP 112/69
[2019-08-23 10:04] LABS: BASO # 0.1 10*3/uL (0.0-0.1); BASO % 0.9 % (0.0-1.0); EOS # 0.5 10*3/uL (0.0-0.4); EOS % 6.6 % (1.0-4.0); HEMATOCRIT 37.6 % (42.0-52.0); HEMOGLOBIN 12.3 g/dl (14.0-18.0); LYMPH # 2.1 10*3/uL (1.3-4.4); LYMPH % 27.2 % (27.0-41.0); MEAN CELL VOLUME 100.5 fl (80.0-94.0); MEAN CORPUSCULAR HGB 32.9 pg (27.0-31.0); MEAN CORPUSCULAR HGB CONC 32.7 g/dl (33.0-37.0); MEAN PLATELET VOLUME 11.2 fl (9.6-12.3); MONO # 0.8 10*3/uL (0.1-1.0); MONO % 9.6 % (3.0-9.0); NEUT # 4.3 10*3/uL (2.3-7.9); NEUT % 55.4 % (47.0-73.0); PLATELET COUNT AUTOMATED 211 10*3/uL (130-400); RED BLOOD COUNT 3.74 10*6/uL (4.50-5.90); RED CELL DISTRI WIDTH 13.1 % (0-14.5); WHITE BLOOD COUNT 7.8 10*3/uL (4.8-10.8)
[2019-08-23 10:31] LABS: ALBUMIN 2.8 gm/dl (3.1-4.5); CREATININE 1.87 mg/dL (0.70-1.30); POTASSIUM 4.6 mmol/L (3.5-5.1); TOTAL PROTEIN 7.1 gm/dL (6.4-8.2)
[2019-08-23 19:36] VITALS: BP 116/69
[2019-08-24 08:00] VITALS: BP 100/56
[2019-08-24 10:07] LABS: CREATININE 1.93 mg/dL (0.70-1.30); POTASSIUM 4.9 mmol/L (3.5-5.1)
[2019-08-24 20:00] VITALS: BP 118/58
[2019-08-25 06:53] LABS: CREATININE 1.58 mg/dL (0.70-1.30); POTASSIUM 4.4 mmol/L (3.5-5.1)
[2019-08-25 08:00] VITALS: BP 110/82
[2019-08-25 19:43] VITALS: BP 113/80
[2019-08-26 08:00] VITALS: BP 116/77
[2019-08-26 20:00] VITALS: BP 115/78
[2019-08-27 07:27] VITALS: BP 110/60
[2019-08-27 20:00] VITALS: BP 115/66
[2019-08-28 08:00] VITALS: BP 111/72
[2019-08-28 20:00] VITALS: BP 110/64
[2019-08-29 07:41] VITALS: BP 111/69
[2019-08-29 19:48] VITALS: BP 112/68
[2019-08-30 08:00] VITALS: BP 92/48
[2019-08-30 19:46] VITALS: BP 122/70
[2019-08-31 06:47] LABS: CREATININE 1.65 mg/dL (0.70-1.30); POTASSIUM 4.1 mmol/L (3.5-5.1)
[2019-08-31 08:00] VITALS: BP 113/66
[2019-08-31 20:00] VITALS: BP 110/64
[2019-09-01 07:07] VITALS: BP 90/58
[2019-09-01 08:00] VITALS: BP 132/66
[2019-09-01] MEDS ORDERED: REMERON15 M2 PO (11:17)
[2019-09-01] MEDS ORDERED: NAMENDA10 MG PO (11:17)
[2019-09-01] MEDS ORDERED: RISPERDAL0.5 MG PO (11:17)
[2019-09-01] MEDS ORDERED: RISPERDAL1 M1 PO (11:17)
[2019-09-01] MEDS ORDERED: EXELON13.3 MG/21 TD (11:18)
[2019-09-01] MEDS ORDERED: VITAMIN D3125 MC1 PO (11:31)
[2019-09-01] MEDS ORDERED: ELIQUIS5 M2 PO (11:50)
== END 2019-09-01 15:05 | disposition other institution (70) | DRG 883 ==
LOC: ED 14:46 → 3N 21:03
PROVIDERS: Family Medicine; Internal Medicine; Nurse Practitioner Women's Health; Physician Assistant; Registered Nurse; ADMIT Psychiatry & Neurology Psychiatry
DX: F63.81 Intermittent explosive disorder (principal); N17.0 Acute kidney failure with tubular necrosis; F33.2 Major depressive disorder, recurrent severe without psychotic features; F03.91 Unspecified dementia, unspecified severity, with behavioral disturbance; E11.65 Type 2 diabetes mellitus with hyperglycemia; I50.9 Heart failure, unspecified; N18.3 Chronic kidney disease, stage 3 (moderate); K72.90 Hepatic failure, unspecified without coma; J44.9 Chronic obstructive pulmonary disease, unspecified; D53.9 Nutritional anemia, unspecified; E11.22 Type 2 diabetes mellitus with diabetic chronic kidney disease; I25.10 Atherosclerotic heart disease of native coronary artery without angina pectoris; K57.90 Diverticulosis of intestine, part unspecified, without perforation or abscess without bleeding; E78.1 Pure hyperglyceridemia; E55.9 Vitamin D deficiency, unspecified; Z79.899 Other long term (current) drug therapy; Z88.2 Allergy status to sulfonamides; Z88.8 Allergy status to other drugs, medicaments and biological substances; Z79.4 Long term (current) use of insulin; Z79.82 Long term (current) use of aspirin; Z86.73 Personal history of transient ischemic attack (TIA), and cerebral infarction without residual deficits; F03.90 Unspecified dementia, unspecified severity, without behavioral disturbance, psychotic disturbance, mood disturbance, and anxiety